=== PATIENT | female | born 1980 | race Caucasian/White ===

== ENCOUNTER → 2017-03-12 | Outpatient (CLI) | payer BC ==
[~2017-03-12] MED LIST: AMOXICILLIN 50500 MG PO; LORTAB 5/500 501 TAB PO; MOTRIN800 MG PO
[2017-03-12 14:50] LABS: BILIRUBIN, INDIRECT 0.2 mg/dL (0-0.9)
== END ==
LOC: LAB 12:14
PROVIDERS: Nurse Practitioner Family
DX: R74.8 Abnormal levels of other serum enzymes (principal)